=== PATIENT | male | born 1975 | race Two or more races ===

== ENCOUNTER 2024-04-30 11:55 | Emergency (ER) | payer SELFPAY ==
[~2024-04-30] VITALS: Ht 188 cm; Wt 81.8 kg
[2024-04-30 12:06] VITALS: BP 169/99
[2024-04-30 12:30] VITALS: BP 145/103
[2024-04-30 12:49] VITALS: BP 149/100
[2024-04-30 12:50] VITALS: BP 153/103
[2024-04-30 12:52] VITALS: BP 160/97
== END 2024-04-30 12:53 | disposition home or self-care (01) | DRG 951 ==
LOC: ED 11:55
DX: Z71.1 Person with feared health complaint in whom no diagnosis is made (principal)